=== PATIENT | male | born 1960 | race African-American/Black ===

== ENCOUNTER 2017-08-28 20:03 | Emergency (ER) | payer OTHER ==
[~2017-08-28] VITALS: Ht 165.1 cm; Wt 79.4 kg
[2017-08-29] MEDS ORDERED: KETO10TA2 PO (01:58)
== END 2017-08-29 02:48 | disposition home or self-care (01) ==
LOC: ER 20:03
DX: S05.11XA Contusion of eyeball and orbital tissues, right eye, initial encounter (principal); W22.8XXA Striking against or struck by other objects, initial encounter; Y93.89 Activity, other specified; Y92.89 Other specified places as the place of occurrence of the external cause; Y99.8 Other external cause status